=== PATIENT | female | born 1990 | race Two or more races ===

== ENCOUNTER 2020-07-16 07:08 | Day surgery (SDC) | payer OTHER ==
[2020-07-16] MEDS ORDERED: MORGIDOX100 MG PO (13:51)
[2020-07-16] MEDS ORDERED: NAPR500T14 PO (13:52)
== END 2020-07-16 18:45 | disposition home or self-care (01) ==
LOC: CIR.AMB 07:08
PROVIDERS: ATTEND Obstetrics & Gynecology
DX: D25.0 Submucous leiomyoma of uterus (principal); N84.0 Polyp of corpus uteri; Z20.828 Contact with and (suspected) exposure to other viral communicable diseases